=== PATIENT | female | born 1970 | race American Indian/Alaskan Native ===

== ENCOUNTER 2021-03-30 12:34 | Emergency (ER) | payer OTHER ==
--- NOTE | 2021-03-30 14:47 | Event Note ---
ED Screening Note Date of service: 03/30/21 Time: 14:44 ED Screening Note: Patient presents to the ER today with complaints of right-sided abdominal pain. Patient states that she has been having this pain off and on for a while but today she she states "I feel like something is wrong" Because it is more constant typically she gets relief from the pain if she has a bowel movement or passes gas. Patient states that she has been to the ER a few times for similar symptoms, and she states that each time she went to the ER today I focused mainly on her heart and her chest, and she states that as far she knows he had never checked her abdomen. She reports associated nausea, she states "I cannot eat". She states that "I feel like something is blocked". She also reports difficulty having a bowel movement and also urinating. She states that she is status post ectopic and C-sections in the past. Her last menstrual cycle was February 05 but she denies being . This initial assessment/diagnostic orders/clinical plan/treatment(s) is/are subject to change based on patients health status, clinical progression and re- assessment by fellow clinical providers in the ED. Further treatment and workup at subsequent clinical providers discretion. Patient/guardian urged not to elope from the ED as their condition may be serious if not clinically assessed and managed. Initial orders include: Abdominal pain order set
[2021-03-30 15:02] LABS: Basophils % (Auto) 0.9 % (0.0-1.8); Eosinophils # (Auto) 0.2 K/mm3 (0.0-0.4); Eosinophils % (Auto) 2.9 % (0.0-4.3); Hematocrit 37.6 % (30.3-42.9); Hemoglobin 12.8 gm/dl (10.1-14.3); Lymphocytes # (Auto) 1.9 K/mm3 (1.2-5.4); Lymphocytes % (Auto) 35.6 % (13.4-35.0); Mean Corpuscular HGB Conc 34 % (30-34); Mean Corpuscular Volume 97 fl (79-97); Monocytes # (Auto) 0.3 K/mm3 (0.0-0.8); Monocytes % (Auto) 5.9 % (0.0-7.3); Platelet Count 281 K/mm3 (140-440); Red Blood Count 3.88 M/mm3 (3.65-5.03); Red Cell Distribution Width 14.7 % (13.2-15.2)
[2021-03-30 15:17] LABS: Alanine Aminotransferase 12 units/L (7-56); Albumin 3.8 g/dL (3.9-5); BUN/Creatinine Ratio 13; Blood Urea Nitrogen 10 mg/dL (7-17); Calcium 9.5 mg/dL (8.4-10.2); Hemolysis Index 11
[2021-03-30 16:37] LABS: Bacteria,Urine 2+ /HPF (Negative); Bilirubin,Urine NEG (Negative); Blood,Urine SM (Negative); Color,Urine Yellow (Yellow); Mucus,Urine FEW /HPF; Protein,Urine <15 mg/dL mg/dL (Negative)
[2021-03-30] MEDS ORDERED: ONDANSETRON 4 MG/2 ML INJ IV ONE ×2 (16:58→18:54)
[2021-03-30] MEDS ORDERED: MORPHINE 4 MG/1 ML INJ IV ONE ×2 (16:58→18:54)
[2021-03-30] MEDS ORDERED: SODIUM CHLORIDE 0.9% 1000 ML 1,000 ML IV ONE ×2 (16:58→18:54)
--- NOTE | 2021-03-30 17:21 | Emergency Department Report ---
ED Abdominal Pain HPI - General Chief Complaint: Abdominal Pain Stated Complaint: LUNG/GALLBLADDER/LIVER COLLAPSE Time Seen by Provider: 03/30/21 16:50 Source: patient Mode of arrival: Ambulatory Limitations: No Limitations - History of Present Illness Initial Comments: This is a 50-year-old female nontoxic, well nourished in appearance, no acute signs of distress presents to the ED with c/o of acute on chronic intermittent nausea and abdominal pain 6 months. Patient stated has seen many different doctors for this condition but does not recall having a CT or US done of her abdomen. 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 Patient denies any vomiting. Patient describes abdominal pain as cramping and aching with level of 10/10 to right upper abdomen area. Patient denies any pleuritic chest pain. Patient denies chest pain, short of breath, fever, hemoptysis, blood in stool, chills, headache, stiff neck, numbness or tingling. Patient denies any diarrhea or constipation. Denies any blood in stool. Patient denies any recent travels. Patient denies any allergies. Stated has PMH of HTN and stated takes Norvasc daily but missed her dose today. MD Complaint: abdominal pain -: month(s) Location: RUQ Radiation: none Migration to: no migration Severity: mild Severity scale (0 -10): 10 Quality: cramping, aching Consistency: intermittent Improves With: nothing Worsens With: nothing Associated Symptoms: nausea. denies: vomiting, diarrhea, fever, chills, constipation, dysuria, hematemesis, hematochezia, melena, hematuria, anorexia, syncope - Related Data Previous Rx's Medication Instructions Recorded Last Taken Type Acetaminophen/Codeine [Tylenol 1 tab PO Q6H PRN #12 tab 03/30/21 Unknown Rx /Codeine # 3 tab] Ondansetron [Zofran Odt] 4 mg PO Q8HR PRN #12 tab.rapdis 03/30/21 Unknown Rx Allergies Allergy/AdvReac Type Severity Reaction Status Date / Time No Known Allergies Allergy Unverified 03/30/21 17:28 ED Review of Systems ROS: Stated complaint: LUNG/GALLBLADDER/LIVER COLLAPSE Other details as noted in HPI Comment: All other systems reviewed and negative Constitutional: denies: chills, fever Eyes: denies: eye pain, eye discharge, vision change ENT: denies: ear pain, throat pain Respiratory: denies: cough, shortness of breath, wheezing Cardiovascular: denies: chest pain, palpitations Endocrine: no symptoms reported Gastrointestinal: abdominal pain, nausea. denies: vomiting, diarrhea, constipation, hematemesis, melena, hematochezia Genitourinary: denies: urgency, dysuria, discharge Musculoskeletal: denies: back pain, joint swelling, arthralgia Skin: denies: rash, lesions Neurological: denies: headache, weakness, paresthesias Psychiatric: denies: anxiety, depression Hematological/Lymphatic: denies: easy bleeding, easy bruising ED Past Medical Hx - Past Medical History Previous Medical History?: Yes Hx Hypertension: Yes - Surgical History Past Surgical History?: Yes Additional Surgical History: ectopic - Medications Home Medications: Home Medications Medication Instructions Recorded Confirmed Last Taken Type Acetaminophen/Codeine [Tylenol 1 tab PO Q6H PRN #12 tab 03/30/21 Unknown Rx /Codeine # 3 tab] Ondansetron [Zofran Odt] 4 mg PO Q8HR PRN #12 tab.rapdis 03/30/21 Unknown Rx ED Physical Exam - General Limitations: No Limitations General appearance: alert, in no apparent distress - Head Head exam: Present: atraumatic, normocephalic - Eye Eye exam: Present: normal appearance - Neck Neck exam: Present: normal inspection, full ROM. Absent: lymphadenopathy - Respiratory Respiratory exam: Present: normal lung sounds bilaterally. Absent: respiratory distress, wheezes, rales, rhonchi, stridor, chest wall tenderness, accessory muscle use, decreased breath sounds, prolonged expiratory - Cardiovascular Cardiovascular Exam: Present: regular rate, normal rhythm, normal heart sounds. Absent: bradycardia, tachycardia, irregular rhythm, systolic murmur, diastolic murmur, rubs, gallop - GI/Abdominal GI/Abdominal exam: Present: soft, distended, tenderness (RUQ), normal bowel sounds. Absent: guarding, rebound, rigid, diminished bowel sounds - Extremities Exam Extremities exam: Present: normal inspection, full ROM, normal capillary refill. Absent: tenderness - Back Exam Back exam: Present: normal inspection, full ROM. Absent: tenderness, CVA tenderness (R), CVA tenderness (L), muscle spasm, paraspinal tenderness, vertebral tenderness, rash noted - Neurological Exam Neurological exam: Present: alert, oriented X3, normal gait - Psychiatric Psychiatric exam: Present: normal affect, normal mood - Skin Skin exam: Present: warm, dry, intact, normal color. Absent: rash ED Course Vital Signs 03/30/21 03/30/21 03/30/21 12:56 19:48 20:00 Temperature 98.3 F Pulse Rate 64 69 62 Respiratory 20 17 13 Rate Blood Pressure 142/82 Blood Pressure 153/112 [Right] O2 Sat by Pulse 98 99 99 Oximetry 03/30/21 20:16 Temperature Pulse Rate 80 Respiratory 21 Rate Blood Pressure 142/82 Blood Pressure [Right] O2 Sat by Pulse 98 Oximetry - Reevaluation(s) Reevaluation #1: 03/30/21 17:23 Patient is speaking in full sentences with no signs of distress noted. Reevaluation #2: 03/30/21 18:54 I was notified that patient left and had CT canceled and medications. I entered the room and patient was there so am reordering pain medicaitons and imaging studies. Patient is still in pain at this time. Will reevaluate patient after pain medications. Reevaluation #3: 03/30/21 20:44 Patient stated pain has resolved and subsided after medical treatment. At this time patient be discharged with appropriate follow-up. ED Medical Decision Making - Lab Data Result diagrams: 03/30/21 14:44 03/30/21 14:44 Lab Results 03/30/21 03/30/21 03/30/21 Range/Units 14:44 14:44 14:44 WBC 5.4 (4.5-11.0) K/mm3 RBC 3.88 (3.65-5.03) M/mm3 Hgb 12.8 (10.1-14.3) gm/dl Hct 37.6 (30.3-42.9) % MCV 97 (79-97) fl MCH 33 H (28-32) pg MCHC 34 (30-34) % RDW 14.7 (13.2-15.2) % Plt Count 281 (140-440) K/mm3 Lymph % (Auto) 35.6 H (13.4-35.0) % [place]ckett % (Auto) 5.9 (0.0-7.3) % Eos % (Auto) 2.9 (0.0-4.3) % Baso % (Auto) 0.9 (0.0-1.8) % Lymph # (Auto) 1.9 (1.2-5.4) K/mm3 [place]ckett # (Auto) 0.3 (0.0-0.8) K/mm3 Eos # (Auto) 0.2 (0.0-0.4) K/mm3 Baso # (Auto) 0.0 (0.0-0.1) K/mm3 Seg Neutrophils % 54.7 (40.0-70.0) % Seg Neutrophils # 2.9 (1.8-7.7) K/mm3 Sodium 140 (137-145) mmol/L Potassium 3.6 (3.6-5.0) mmol/L Chloride 103.0 (98-107) mmol/L Carbon Dioxide 26 (22-30) mmol/L Anion Gap 15 mmol/L BUN 10 (7-17) mg/dL Creatinine 0.8 (0.6-1.2) mg/dL Estimated GFR > 60 ml/min BUN/Creatinine Ratio 13 % Glucose 95 (65-100) mg/dL Calcium 9.5 (8.4-10.2) mg/dL Total Bilirubin 0.20 (0.1-1.2) mg/dL AST 20 (5-40) units/L ALT 12 (7-56) units/L Alkaline Phosphatase 105 (35-129) units/L Total Protein 7.4 (6.3-8.2) g/dL Albumin 3.8 L (3.9-5) g/dL Albumin/Globulin Ratio 1.1 % Lipase 13 (13-60) units/L HCG, Qual Negative (Negative) Urine Color (Yellow) Urine Turbidity (Clear) Urine pH (5.0-7.0) Ur Specific Crossroads (1.003-1.030) Urine Protein (Negative) mg/dL Urine Glucose (UA) (Negative) mg/dL Urine Ketones (Negative) mg/dL Urine Blood (Negative) Urine Nitrite (Negative) Urine Bilirubin (Negative) Urine Urobilinogen (<2.0) mg/dL Ur Leukocyte Esterase (Negative) Urine WBC (Auto) (0.0-6.0) /HPF Urine RBC (Auto) (0.0-6.0) /HPF U Epithel Cells (Auto) (0-13.0) /HPF Urine Bacteria (Auto) (Negative) /HPF Urine Mucus /HPF 03/30/21 Range/Units Unknown WBC (4.5-11.0) K/mm3 RBC (3.65-5.03) M/mm3 Hgb (10.1-14.3) gm/dl Hct (30.3-42.9) % MCV (79-97) fl MCH (28-32) pg MCHC (30-34) % RDW (13.2-15.2) % Plt Count (140-440) K/mm3 Lymph % (Auto) (13.4-35.0) % Crockett % (Auto) (0.0-7.3) % Eos % (Auto) (0.0-4.3) % Baso % (Auto) (0.0-1.8) % Lymph # (Auto) (1.2-5.4) K/mm3 [place]ckett # (Auto) (0.0-0.8) K/mm3 Eos # (Auto) (0.0-0.4) K/mm3 Baso # (Auto) (0.0-0.1) K/mm3 Seg Neutrophils % (40.0-70.0) % Seg Neutrophils # (1.8-7.7) K/mm3 Sodium (137-145) mmol/L Potassium (3.6-5.0) mmol/L Chloride (98-107) mmol/L Carbon Dioxide (22-30) mmol/L Anion Gap mmol/L BUN (7-17) mg/dL Creatinine (0.6-1.2) mg/dL Estimated GFR ml/min BUN/Creatinine Ratio % Glucose (65-100) mg/dL Calcium (8.4-10.2) mg/dL Total Bilirubin (0.1-1.2) mg/dL AST (5-40) units/L ALT (7-56) units/L Alkaline Phosphatase (35-129) units/L Total Protein (6.3-8.2) g/dL Albumin (3.9-5) g/dL Albumin/Globulin Ratio % Lipase (13-60) units/L HCG, Qual (Negative) Urine Color Yellow (Yellow) Urine Turbidity Clear (Clear) Urine pH 6.0 (5.0-7.0) Ur Specific Crossroads 1.021 (1.003-1.030) Urine Protein <15 mg/dl (Negative) mg/dL Urine Glucose (UA) Neg (Negative) mg/dL Urine Ketones Neg (Negative) mg/dL Urine Blood Sm (Negative) Urine Nitrite Neg (Negative) Urine Bilirubin Neg (Negative) Urine Urobilinogen 2.0 (<2.0) mg/dL Ur Leukocyte Esterase Neg (Negative) Urine WBC (Auto) 2.0 (0.0-6.0) /HPF Urine RBC (Auto) 6.0 (0.0-6.0) /HPF U Epithel Cells (Auto) 3.0 (0-13.0) /HPF Urine Bacteria (Auto) 2+ (Negative) /HPF Urine Mucus Few /HPF - Radiology Data [facility] [address] [place] [address] Cat Scan Report Signed Patient: SHEREE COATS MR#: [id number] : 1970 Acct:[id number] Age/Sex: 50 / F ADM Date: 03/30/21 Loc: ED Attending Dr: Ordering Physician: GEORGE NUÑEZ NP Date of Service: 03/30/21 Procedure(s): CT abdomen pelvis w con Accession Number(s): [id number] cc: GEORGE NUÑEZ NP CT OF THE ABDOMEN AND PELVIS WITH INTRAVENOUS CONTRAST INDICATION / CLINICAL INFORMATION: RUQ pain. TECHNIQUE: The patient received 100 cc Omnipaque [address] scans at this location are performed using CT dose reduction for ALARA by means of automated exposure control. COMPARISON: None available. FINDINGS: ABDOMEN: The liver, spleen, gallbladder, bile ducts, pancreas, adrenal glands, kidneys and bowel demonstrate no significant abnormality. No adenopathy is present. There is mild right basilar subsegmental atelectasis. PELVIS: The distal ureters and urinary bladder are normal. There is a 2.4 cm fibroid in the posterior uterine fundus. There is no evidence of adnexal mass or free fluid. A normal retrocecal appendix is present. There is no evidence of diverticulitis. I do not identify a hernia. No acute osseous abn ormality is seen. IMPRESSION: 1. No acute intra-abdominal disease is identified. 2. Mild right basilar subsegmental atelectasis. Signer Name: Cameron Coker MD Signed: 03/30/2021 7:35 PM Workstation Name: [id number] Transcribed By: RT Dictated By: Cameron Coker MD Electronically Authenticated By: Cameron Coker MD Signed Date/Time: 03/30/211934 DD/ 30 TD/TT: - Medical Decision Making This is a 50-year-old female that presents with abdominal pain. Patient is stable and was examined by me. Labs obtained. UA obtained. CT of abdomen [place] and chest x-ray and dictated by the radiologist. Patient is notified of the reports with no questions noted by the patient. Vital signs are stable prior to discharge. Patient received medical treatment in the ED which patient stated symptoms has resovled and subsided. Was instructed note to operate any machinery due to possible drowsiness and stated someone will drive the patient home. A by mouth challenge has been obtained and patient tolerated well with no nausea vomiting. Patient was also instructed to Follow-up with a gym instructor doctor in 3-5 days or if symptoms worsen and continue return to emergency room as soon as possible. At time of discharge, the patient does not seem toxic or ill in appearance. No acute signs of distress noted. Patient agrees to discharge treatment plan of care. No further questions noted by the patient. Critical care attestation.: If time is entered above; I have spent that time in minutes in the direct care of this critically ill patient, excluding procedure time. ED Disposition Clinical Impression: Nausea, Abdominal pain of unknown cause Disposition: HOME / SELF CARE / HOMELESS Is pt being admited?: No Does the pt Need Aspirin: No Condition: Stable Instructions: Abdominal Pain (ED), Abdominal Pain, Adult Additional Instructions: Follow-up with a gym instructor doctor in 3-5 days or if symptoms worsen and continue return to emergency room as soon as possible. Prescriptions: Acetaminophen/Codeine [Tylenol /Codeine # 3 tab] 1 tab PO Q6H PRN #12 tab PRN Reason: Pain , Severe (7-10) Ondansetron [Zofran Odt] 4 mg PO Q8HR PRN #12 tab.rapdis PRN Reason: Pain , Severe (7-10) Referrals: PRIMARY CARE, [Primary Care Provider] - 3-5 Days [facility] [Provider Group] - 3-5 Days ROSEANNE HOLLY MD [Staff Physician] - 3-5 Days Forms: Work/School Release Form(ED) Time of Disposition: 20:45
--- NOTE | 2021-03-30 19:40 | Cat Scan Report ---
CT OF THE ABDOMEN AND PELVIS WITH INTRAVENOUS CONTRAST INDICATION / CLINICAL INFORMATION: RUQ pain. TECHNIQUE: The patient received 100 cc Omnipaque [address] scans at this location are performed using CT dose reduction for ALARA by means of automated exposure control. COMPARISON: None available. FINDINGS: ABDOMEN: The liver, spleen, gallbladder, bile ducts, pancreas, adrenal glands, kidneys and bowel demo nstrate no significant abnormality. No adenopathy is present. There is mild right basilar subsegmenta l atelectasis. PELVIS: The distal ureters and urinary bladder are normal. There is a 2.4 cm fibroid in the posterior uterine fundus. There is no evidence of adnexal mass or free fluid. A normal retrocecal appendix is present. There is no evidence of diverticulitis. I do not identify a hernia. No acute osseous abnorma lity is seen. IMPRESSION: 1. No acute intra-abdominal disease is identified. 2. Mild right basilar subsegmental atelectasis. Signer Name: Cameron Coker MD Signed: 03/30/2021 7:35 PM Workstation Name: [id number]
--- NOTE | 2021-03-30 20:42 | XRay Report ---
CHEST 1 VIEW 03/30/2021 8:24 PM INDICATION / CLINICAL INFORMATION: Right upper quadrant pain. COMPARISON: None available. FINDINGS: SUPPORT DEVICES: None. HEART / MEDIASTINUM: The heart size and pulmonary vasculature are normal. LUNGS / PLEURA: There is mild right basilar subsegmental atelectasis. The lungs are otherwise clear. No pleural effusion. No pneumothorax. ADDITIONAL FINDINGS: No significant additional findings. IMPRESSION: Mild right basilar subsegmental atelectasis. Signer Name: Cameron Coker MD Signed: 03/30/2021 8:38 PM Workstation Name: [id number]
[2021-03-30 20:59] VITALS: BP 134/77
== END 2021-03-30 21:00 | disposition home or self-care (01) ==
LOC: ED 12:34
DX: R11.0 Nausea (principal); R10.9 Unspecified abdominal pain; I10 Essential (primary) hypertension
CPT/HCPCS: 36415; 71045; 74177; 80053; 81001; 83690; 84703; 85025; 96361; 96374; 96375; 99284; J2270; J2405; J7030; Q9967